=== PATIENT | female | born 1940 | race Caucasian/White ===

== ENCOUNTER → 2016-09-24 | Outpatient (CLI) | payer MEDICARE, BC | END | disposition home or self-care (01) | LOC: LABWHC1 10:03 | PROVIDERS: ATTEND Internal Medicine | DX: I10 Essential (primary) hypertension (principal) | CPT/HCPCS: 36415; 93005 ==

== ENCOUNTER → 2017-08-26 | Outpatient (CLI) | payer MEDICARE, BC ==
--- NOTE | 2017-08-26 11:13 | XR ---
EXAMINATION TYPE: XR chest 2V DATE OF EXAM: 08/26/2017 COMPARISON: NONE TECHNIQUE: PA and lateral views submitted. HISTORY: Acute respiratory infection FINDINGS: The lungs are clear and there is no pneumothorax, pleural effusion, or focal pneumonia. Hypertrophi c and degenerative change of the spine. Mild hyperinflation. Atherosclerotic change aorta. Arthropath y of the shoulders. No overt failure. Linear changes at both lung bases are suggestive of scar or ate lectasis. IMPRESSION: 1. Subsegmental changes involving both lung bases. Atelectasis favored over infiltrate correlate clin ically.
[2017-08-26 12:22] LABS: Blood Urea Nitrogen 29 mg/dL (7-17)
--- NOTE | 2017-08-26 13:22 | CT ---
EXAMINATION TYPE: CT angio chest DATE OF EXAM: 08/26/2017 COMPARISON: Radiograph same day HISTORY: 76 year-old female acute respiratory infection, unspecified TECHNIQUE: Contiguous axial scanning of the chest performed with IV Contrast, patient injected with 1 00 ml mL of Visipaque 320. Delayed coronal/sagittal reconstructions performed. CT DLP: 435 mGycm Automated exposure control for dose reduction was used. FINDINGS: The heart is upper limits of normal in size without pericardial effusion. Minimal coronary vessel dafne cifications are present. Borderline ectatic ascending aorta 3.5 cm. Mild atherosclerotic arch calcifications. Conventional arc h vessel branching anatomy. Satisfactory opacification of the pulmonary arterial system without evidence for pulmonary embolus. There is a borderline to mildly enlarged right hilar lymph node measuring 1.2 cm. Otherwise, no thora cic lymphadenopathy by CT size criteria. Evaluation of the lungs shows patchy groundglass throughout the lungs especially at the lung bases an d dependently. However, patchy density is more confluent at the peripheral left base. No pleural effu jose f. Small to moderate-sized hiatal hernia. Spleen is only partially visualized but mildly enlarged at 14. 2 cm AP. Bones: Endplate spondylosis mid to lower thoracic spine. No osseous destructive process. IMPRESSION: 1. NO EVIDENCE FOR PULMONARY EMBOLUS. 2. PATCHY GROUNDGLASS THROUGHOUT THE LUNGS COULD REPRESENT AREAS OF GENERALIZED ATELECTASIS. MOSAIC A TTENUATION IN THE SETTING OF SMALL AIRWAYS DISEASE SUCH BRONCHIOLITIS OR ASTHMA IS AN ALTERNATIVE POSSIBILITY. CLINICALLY CORRELATE. 3. MORE CONFLUENT LEFT BASILAR OPACITY COULD REPRESENT PNEUMONIA. 4. SMALL TO MODERATE-SIZED HIATAL HERNIA. 5. PARTIALLY VISUALIZED SPLENOMEGALY.
== END | disposition home or self-care (01) ==
LOC: RADXRMAIN 10:56
PROVIDERS: ATTEND Internal Medicine
DX: R91.8 Other nonspecific abnormal finding of lung field (principal); J06.9 Acute upper respiratory infection, unspecified
CPT/HCPCS: 82565; 84520; 71046; 71275; 36415; Q9967